=== PATIENT | male | born 1970 | race Caucasian/White ===

== ENCOUNTER 2017-04-17 08:24 | Emergency (ER) | payer OTHER ==
[2017-04-17 08:31] VITALS: TEMP 98; BMI 26.6
--- NOTE | 2017-04-17 09:23 | PDOC ---
History of Present Illness - General History Source: Patient Exam Limitations: No Limitations - History of Present Illness Initial Comments: 04/17/17 12:25 Patient is a 46 year old male with a significant past medical history of kidney stones who presents to the ED with right flank pain. Patient states that he developed right flank pain a day and half ago and radiates to the lower abdomen. Patient states that the pain is intermittent and is 10/10 at most severe intensity lasting for 1 hour. Patient reports associated diaphoresis, nausea and vomiting. He reports taking oxycodone 8 hours before presentation to the ED to alleviate the pain.He states that he initially developed the pain in the back that has now shifted to the right flank. He also reports hesitancy. He notes that his last kidney stone flare up was 8 months ago and he passed the stone on its own. He states that he previously had a stent placed for a kidney stone which was removed. He denies fever or chills. He denies an cp, SOB, palpitation. He denies dysuria , hematuria, foul smelling urine, urgency. He denies any strenuous activity. SH - non smoker, no alcohol or IVDU. PCP - Dr. Knapp <Dahiana Velez - Last Filed: 04/17/17 13:34> <Jaime Apodaca - Last Filed: 04/17/17 14:12> - General Chief Complaint: Pain Stated Complaint: PAIN/ ABD, BACK Time Seen by Provider: 04/17/17 09:06 Past History <Dahiana Velez - Last Filed: 04/17/17 13:34> - Past Medical History Kidney Stones: Yes - Psycho/Social/Smoking Cessation Hx Anxiety: No Suicidal Ideation: No Smoking History: Never smoked Hx Alcohol Use: Yes (SOCIAL) Drug/Substance Use Hx: No Substance Use Type: None <Jaime Apodaca - Last Filed: 04/17/17 14:12> - Past Medical History Allergies/Adverse Reactions: Allergies Allergy/AdvReac Type Severity Reaction Status Date / Time No Known Allergies Allergy Verified 04/17/17 08:31 Home Medications: Ambulatory Orders Ibuprofen [Motrin -] 400 mg PO QID PRN #28 tablet 04/17/17 Oxycodone HCl/Acetaminophen [Percocet 5-325 mg Tablet -] 1 - 2 combo PO Q6H PRN #14 tablet MDD 8 04/17/17 Tamsulosin HCl [Flomax] 0.4 mg PO DAILY #7 capsule 04/17/17 Review of Systems - Review of Systems Able to Perform ROS?: Yes Comments:: 04/17/17 12:26 CONSTITUTIONAL: Reported: Diaphoresis No reported: Fever, Chills, Generalized Weakness, Malaise, Loss of Appetite HEENT: No reported: Rhinorrhea, Nasal Congestion, Throat Pain, Throat Swelling, Difficulty Swallowing, Mouth Swelling, Ear Pain, Eye Pain, Visual Changes CARDIOVASCULAR: No reported: Chest Pain, Syncope, Palpitations, Irregular Heart Rate, Lightheadedness, Peripheral Edema RESPIRATORY: No reported: Cough, Shortness of Breath, SOB with Exertion, Orthopnea, Wheezing , Stridor, Hemoptysis GASTROINTESTINAL: Reported: abdominal pain, nausea, vomiting. No reported: Abdominal Distension, Diarrhea, Constipation, Melena, Hematochezia GENITOURINARY: Present: flank pain, hesitancy No reported: Dysuria, Frequency, Urgency, Genital Pain MUSCULOSKELETAL: No reported: Myalgia, Arthralgia, Joint Swelling, Back pain, Neck Pain SKIN: No reported: Rash, Itching, Pallor HEMEATOLOGIC/IMMUNOLOGIC: No reported: Easy Bleeding, Easy Bruising, Lymphadenopathy, Frequent infections ENDOCRINE: No reported: Unexplained Weight Gain, Unexplained Weight Loss, Heat Intolerance , Cold Intolerance NEUROLOGIC: No reported: Headache, Focal Weakness, Paresthesias, Vertigo, Lightheadedness, Unsteady Gait, Seizure, Mental Status Changes, Incontinence PSYCHIATRIC: No reported: Anxiety, Depression <Dahiana Velez - Last Filed: 04/17/17 13:34> *Physical Exam - Vital Signs Last Vital Signs Temp Pulse Resp BP Pulse Ox 98.0 F 82 20 130/67 99 04/17/17 08:28 04/17/17 08:28 04/17/17 08:28 04/17/17 08:28 04/17/17 08:28 - Physical Exam Comments: 04/17/17 12:43 GENERAL: The patient is awake, alert, and fully oriented, Nontoxic - in no acute distress. HEAD: Normocephalic, atraumatic. EYES: extraocular movements intact, sclera anicteric, conjunctiva clear. ENT: Normal voice, Moist mucous membranes. NECK: Normal range of motion, supple LUNGS: Breath sounds equal, clear to auscultation bilaterally. No wheezes, no rhonchi, no rales. HEART: Regular rate and rhythm, without murmur, rub or gallop. ABDOMEN: Soft, no focal tenderness, normoactive bowel sounds. No guarding, no rebound.No CVA tenderness EXTREMITIES: Normal range of motion, no edema. No clubbing or cyanosis. No cords, erythema, or tenderness. NEUROLOGICAL: No facial assymetry, Normal speech, PSYCH: Normal mood, normal affect. SKIN: Warm, Dry, normal turgor <Dahiana Velez - Last Filed: 04/17/17 13:34> - Vital Signs Last Vital Signs Temp Pulse Resp BP Pulse Ox 98.0 F 82 20 130/67 99 04/17/17 08:28 04/17/17 08:28 04/17/17 08:28 04/17/17 08:28 04/17/17 08:28 <Jaime Apodaca - Last Filed: 04/17/17 14:12> ED Treatment Course - LABORATORY CBC & Chemistry Diagram: 04/17/17 09:27 04/17/17 09:27 - ADDITIONAL ORDERS Additional order review: Laboratory Results 04/17/17 04/17/17 10:48 09:27 Sodium 136 Potassium 4.7 Chloride 101 Carbon Dioxide 28 Anion Gap 7 L BUN 21 H Creatinine 1.8 H Creat Clearance w eGFR 41.19 Random Glucose 111 H Calcium 9.4 Total Bilirubin 0.9 AST 31 ALT 40 Alkaline Phosphatase 78 Total Protein 7.6 Albumin 4.4 Urine Color Ltyellow Urine Appearance Clear Urine pH 6.0 Urine Protein Negative Urine Glucose (UA) Negative Urine Ketones Trace H Urine Blood 2+ H Urine Nitrite Negative Urine Bilirubin Negative Urine Urobilinogen Negative Ur Leukocyte Esterase Negative Urine RBC 1 Urine WBC <1 04/17/17 09:27 RBC 5.03 MCV 87.2 MCHC 33.6 RDW 13.1 MPV 7.7 Neutrophils % 84.1 H Lymphocytes % 7.7 L Monocytes % 7.9 Eosinophils % 0.1 Basophils % 0.2 - Medications Given in the ED: ED Medications Discontinued Medications Generic Name Dose Route Start Last Admin Trade Name Freq PRN Reason Stop Dose Admin Sodium Chloride 1,000 mls @ 1,000 mls/hr 04/17/17 09:31 04/17/17 10:16 Normal Saline - IV 04/17/17 10:30 1,000 mls/hr .Q1H ONE Administration Ketorolac Tromethamine 30 mg 04/17/17 09:31 04/17/17 10:17 Toradol Injection - IVPUSH 04/17/17 09:32 30 mg ONCE ONE Administration <Dahiana Velez - Last Filed: 04/17/17 13:34> - LABORATORY CBC & Chemistry Diagram: 04/17/17 09:27 04/17/17 09:27 <ConstanzaJaime roca - Last Filed: 04/17/17 14:12> Medical Decision Making - Medical Decision Making 04/17/17 13:19 A call was placed to Dr. Garcia at his office. Awaiting a call back. <Dahiana Velez - Last Filed: 04/17/17 13:34> - Medical Decision Making 04/17/17 09:32 46y M hx of kidney stones presenting with R flank pain starting about 1.5 days ago, now radiates to the anterior abdomen associated with lali diaphresis, and vomiting last night, with the pain w/o any fever/chills, dysuria, hematuria, chest pain, sob, rivas. On exam the pt apperas well, in no distress without tenderness on exam in abdomen or flank. suspect kidney stones but consider msk pain, appendicits, gall bladder disease will ck cbc , cmp, ua, lipase will give toradol, fluids as pt declines nausea meds at this time will reassess A portion of this note was documented by scribe services under my direction. I have reviewed the details of the note, within reason, and agree with the documentation with the following case summary and management plan written by me 04/17/17 13:41 labs reviewed noted for leukocytosis w/ left shift Cr at 1.8 UA +hematuria w/o signs of infection CT noted for some stranding, +R sided ureteral stone will d/w dr. De La Fuente 04/17/17 13:50 case was d/w dr. De La Fuente - states that we can give pt 1 dose of ctx here in ED would recommend flomax/pain meds pt currently feeling well and asymptomatic he will gollow up with the pt on saturday for reassessment and trecheck his lab work. <Jaime Apodaca - Last Filed: 04/17/17 14:12> *DC/Admit/Observation/Transfer - Attestations Scribe Attestion: 04/17/17 12:44 Documentation prepared by DEMETRIA Kirby, acting as medical clerk for Jaime Apodaca MD. <Dahiana Velez - Last Filed: 04/17/17 13:34> - Discharge Dispostion Admit: No <Jaime Apodaca - Last Filed: 04/17/17 14:12> Diagnosis at time of Disposition: Kidney stone on left side Acute renal failure Qualifiers: Acute renal failure type: unspecified Qualified Code(s): N17.9 - Acute kidney failure, unspecified - Discharge Dispostion Disposition: HOME Condition at time of disposition: Improved - Prescriptions Prescriptions: Tamsulosin HCl [Flomax] 0.4 mg PO DAILY #7 capsule Ibuprofen [Motrin -] 400 mg PO QID PRN #28 tablet PRN Reason: Pain Oxycodone HCl/Acetaminophen [Percocet 5-325 mg Tablet -] 1 - 2 combo PO Q6H PRN #14 tablet MDD 8 PRN Reason: Pain - Referrals Referrals: Minh Knapp MD [Primary Care Provider] - Minh Garcia MD [Staff Physician] - - Patient Instructions Printed Discharge Instructions: DI for Kidney Stones Additional Instructions: Return to the emergency department immediately with ANY new, persistent or worsening symptoms including intolerable pain, inability to tolerate oral intake , fevers, chills or any other concerns. Your creatinine (marker of your kidney function) was elevated to 1.8. Please follow up with dr. De La Fuente on Saturday for reassessment and to have your blood work rechecked. Take the medications as prescribed You MUST call and follow up with your urologist on saturday for further evaluation of your symptoms. Results were discussed with you. Please make sure your doctor reviews the results of your emergency evaluation.
[2017-04-17] MEDS ORDERED: SODIUM CHLORIDE 1,000 ML IV ONE (09:31)
[2017-04-17] MEDS ORDERED: KETOROLAC TROMETHAMINE 30 MG/1 ML VIAL IVPUSH ONE (09:31)
[2017-04-17 09:32] LABS: BASOPHIL 0.2 % (0-2.0); EOSINOPHIL 0.1 % (0-4.5); MCH 29.3 pg (25.7-33.7); MCHC 33.6 g/dl (32.0-35.9); MEAN CELL VOLUME 87.2 fl (80-96); MEAN PLT VOLUME 7.7 fl (7.5-11.1); NEUTROPHILS 84.1 % (42.8-82.8); RDW 13.1 % (11.9-15.9); WHITE BLOOD COUNT 15.7 K/mm3 (4.0-10.0)
[2017-04-17 10:01] LABS: ALBUMIN 4.4 g/dl (3.4-5.0); ANION GAP 7 (8-16); CALCIUM 9.4 mg/dL (8.5-10.1); CO2 28 mmol/L (21-32); CREATININE 1.8 mg/dL (0.7-1.3); GLUCOSE,RANDOM 111 mg/dL (74-106); SGPT/ALT 40 U/L (12-78)
[2017-04-17 10:02] LABS: ALK PHOS 78 U/L (45-117); BILIRUBIN,TOTAL 0.9 mg/dL (0.2-1.0); TOT PROT 7.6 g/dl (6.4-8.2)
[2017-04-17] MEDS ORDERED: KETOROLAC TROMETHAMINE 60 MG/2 ML VIAL ONE (10:10)
[2017-04-17 10:21] LABS: SGOT/AST 31 U/L (15-37)
[2017-04-17 11:02] LABS: URINE APPEARANCE CLEAR; URINE BILIRUBIN NEGATIVE (NEGATIVE); URINE BLOOD 2+ (NEGATIVE); URINE COLOR LTYELLOW; URINE GLUCOSE (UA) NEGATIVE (NEGATIVE); URINE KETONE TRACE (NEGATIVE); URINE LEUK ESTERASE NEGATIVE (NEGATIVE); URINE NITRITE NEGATIVE (NEGATIVE); URINE PROTEIN NEGATIVE (NEGATIVE); URINE UROBILINOGEN NEGATIVE mg/dL (0.2-1.0)
[2017-04-17 11:07] LABS: URINE RBC 1 /hpf (0-3); URINE WBC <1 /hpf (3-5)
[2017-04-17 11:14] LABS: PLATELET COUNT 219 K/MM3 (134-434); PLATELET ESTIMATE ADEQUATE (NORMAL)
[2017-04-17] MEDS ORDERED: CEFTRIAXONE 1 GM in DEXTROSE 5%-WATER - 50 ML IVPB ONE (13:49)
[2017-04-17 14:46] VITALS: BP 129/67; PULSE 79
== END 2017-04-17 14:48 | disposition home or self-care (01) ==
LOC: JER 08:24
PROC: 3E0337Z Introduction of Electrolytic and Water Balance Substance into Peripheral Vein, Percutaneous Approach (ICD-10-PCS; principal; 2017-04-17)
PROC: 3E03329 Introduction of Other Anti-infective into Peripheral Vein, Percutaneous Approach (ICD-10-PCS; 2017-04-17)
PROC: 3E033GC Introduction of Other Therapeutic Substance into Peripheral Vein, Percutaneous Approach (ICD-10-PCS; 2017-04-17)
DX: N20.0 Calculus of kidney (principal); Z87.442 Personal history of urinary calculi; N17.9 Acute kidney failure, unspecified
CPT/HCPCS: 36415; 74176-TC; 80053; 81003; 81015; 83690; 85025; 99284-25

== ENCOUNTER 2024-02-17 05:03 | Day surgery (SDC) | payer OTHER ==
[2024-02-10 09:06] VITALS: BMI 29.9
[2024-02-17 09:53] VITALS: TEMP 98.4
[2024-02-17 11:00] VITALS: RESP 16
[2024-02-17 11:01] VITALS: BP 111/66; PULSE 60
== END 2024-02-17 10:48 | disposition home or self-care (01) ==
LOC: JASU-ENDO 05:03
PROVIDERS: ATTEND Internal Medicine Gastroenterology
PROC: 0DJD8ZZ Inspection of Lower Intestinal Tract, Via Natural or Artificial Opening Endoscopic (ICD-10-PCS; principal; 2024-02-17 10:00)
DX: Z12.11 Encounter for screening for malignant neoplasm of colon (principal); K57.30 Diverticulosis of large intestine without perforation or abscess without bleeding